=== PATIENT | female | born 1950 | race Caucasian/White ===

== ENCOUNTER → 2016-10-03 | Outpatient (CLI) | payer MEDICARE | LOC: LAB 17:10 | DX: R35.0 Frequency of micturition (principal) ==

== ENCOUNTER → 2017-02-24 | Outpatient (CLI) | payer MEDICARE | LOC: LAB 13:19 | DX: N39.0 Urinary tract infection, site not specified (principal) ==

== ENCOUNTER → 2017-03-09 | Outpatient (CLI) | payer MEDICARE | LOC: LAB 17:18 | DX: N39.0 Urinary tract infection, site not specified (principal) ==

== ENCOUNTER → 2017-04-29 | Outpatient (CLI) | payer MEDICARE | LOC: LAB 11:56 | DX: N39.0 Urinary tract infection, site not specified (principal) ==

== ENCOUNTER → 2017-05-11 | Outpatient (CLI) | payer MEDICARE | LOC: LAB 13:13 | DX: E11.9 Type 2 diabetes mellitus without complications (principal) ==

== ENCOUNTER → 2017-05-20 | Outpatient (CLI) | payer MEDICARE ==
[2017-05-20 12:41] LABS: HEMOGLOBIN 13.8 g/dL (12.2-16.2); LYMPH # 2.6 K/mm3 (0.7-4.5); LYMPH % 29.2 % (10-50.0)
[2017-05-20 12:47] LABS: URINE BILIRUBIN - DIPSTICK NEGATIVE (NEG); URINE BLOOD NEGATIVE (NEG)
[2017-05-20 13:09] LABS: URINE SQUAMOUS CELLS OCC #/hpf (0-5)
[2017-05-20 14:40] LABS: BUN 13 mg/dL (7-18)
[2017-05-20 14:46] LABS: GFR (ESTIMATED) 50 ML/MIN (59-)
== END ==
LOC: LAB 12:17
PROVIDERS: Internal Medicine Nephrology
DX: R80.9 Proteinuria, unspecified (principal)